=== PATIENT | male | born 1970 | race Caucasian/White ===

== ENCOUNTER 2025-05-29 01:40 | Inpatient (IN) | payer MEDICARE, SELFPAY ==
[2025-05-29] VITALS (12 sets, daily range): BP systolic 87–144; BP diastolic 51–84; PULSE 76–93; RESP 16–20; TEMP 35.3–36.9; O2SAT 95–100; BMI 22.0
--- NOTE | ~2025-05-29 | XR_ITS ---
CLINICAL HISTORY: sepsis 1 view chest x-ray Comparison: None provided Findings: There is mild nonspecific coarsening of bilateral interstitial markings. Heart size is normal. No acute fracture. IMPRESSION: Mild nonspecific coarsening of bilateral interstitial markings. This document has been electronically signed by: Levi Lang on 05/29/2025 05:10:33
--- NOTE | 2025-05-29 01:45 | MHC.EDTECH ---
Pt refused vitals, RN aware
--- NOTE | 2025-05-29 01:54 | PC.NURSE ---
pt refusing to allow nurse or tech to obtain v/s. fighting trying to stand up to go to restroom. attempted to explain to patient it is unsafe in his socks. pt began swearing and jerking away from nurses. security called for assistance
[2025-05-29 02:45] LABS: MANUAL DIFF FLAG NO
[2025-05-29] MEDS: Lactated Ringers 1,000 ML 999 ML IV ×3 (02:45→04:51)
[2025-05-29 02:47] LABS: Hematocrit 46.1 % (42.0-52.0); Hemoglobin 15.3 g/dl (14.0-18.0); Imm Gran Abs Auto 0.02 X10*3/uL (0.00-0.03); Imm Gran Pct Auto 0.3 % (0.0-0.4); Lymphocytes Absolute Auto 2.0 X10*3/uL (1.2-4.9); Mean Corpuscular HGB Conc 33.2 g/dl (31.0-36.0); Mean Corpuscular Hemoglobin 30.1 pg (27.0-33.0); Mean Corpuscular Volume 90.6 fL (80.0-98.0); NRBC Abs Auto 0.000 X10*3/uL (0.0-0.012); NRBC Pct Auto 0.0 /100WBC (0.0-0.2); Platelet Count 306 X10*3/uL (160-400); Red Blood Count 5.09 X10*6/uL (4.60-5.80); White Blood Count 5.8 X10*3/uL (4.8-10.8)
[2025-05-29 03:01] LABS: Alanine Aminotransferase 19 U/L (0-40); Albumin Level 4.3 g/dL (3.5-5.0); Alkaline Phosphatase 96 U/L (39-117); Anion Gap 16 (12-20); Aspartate Amino Transferase 39 U/L (5-37); Blood Urea Nitrogen 9 mg/dL (9-16); Calcium 8.8 mg/dL (8.4-10.2); Carbon Dioxide 23 mmol/L (22-29); Chloride 109 mmol/L (96-108); Creatinine Clr Calc Pharmacy 108.6; Estimated Glomerular Filt Rate > 60; Potassium 3.9 mmol/L (3.3-5.1); Sodium 144 mmol/L (135-145); Total Protein 7.4 g/dL (6.5-8.0)
--- NOTE | 2025-05-29 03:07 | ECG_ITS ---
Test Reason : HYPOTENSION Blood Pressure : */* mmHG Vent. Rate : 82 BPM Atrial Rate : 82 BPM P-R Int : 152 ms QRS Dur : 86 ms QT Int : 390 ms P-R-T Axes : 74 268 63 degrees QTcB Int : 455 ms Normal sinus rhythm Right superior axis deviation Pulmonary disease pattern Inferior-posterior infarct , age undetermined Abnormal ECG When compared with ECG of 23-Jul-2005 16:21, Questionable change in QRS axis Inferior-posterior infarct is now Present Nonspecific T wave abnormality now evident in Inferior leads Referred By: Summer De Electronically Signed By: Nam Parkinson
[2025-05-29 03:18] LABS: Venous Blood Gas Refer to POC result
[2025-05-29 03:20] LABS: VBG HCO3 23 mmol/L (22-26); VBG O2 % Saturation 65.0 %
[2025-05-29 04:01] LABS: Cannabinoid Screen Urine POSITIVE (Not Detect)
[2025-05-29 04:06] LABS: Appearance Urine Clear; Glucose Urine UA Negative (Negative); PH 6.0 (5.0-9.0); Specific Gravity - Urine <= 1.005 (1.005-1.025)
[2025-05-29] MEDS: vancomycin HCL 1,000 MG, vancomycin HCL 750 MG in 0.9 % Sodium Chloride 500 ML 267.5 MG IV (04:29)
[2025-05-29 04:43] LABS: Resp Syncy Virus RNA Qual PCR NEGATIVE (Negative); SARS COV2 PCR INHOUSE NEGATIVE (Negative)
[2025-05-29 05:11] LABS: Reflex Lactate? Lactic Acid Added
--- NOTE | 2025-05-29 05:39 | ED.ALCOHOL ---
HPI - Alcohol General Chief Complaint: ETOH/Substance Use Stated Complaint: crisis Time Seen by Provider: 05/29/25 01:56 Source: patient, EMS and RN notes reviewed Mode of arrival: EMS Limitations: altered mental status History of Present Illness ED Provider: Dr. Summer De HPI narrative: 55-year-old male with unclear past medical history presenting via EMS after the police were called by the patient. Evidently the patient called the police because he was ?cold?. EMS arrived to find the patient is severely intoxicated. Patient comes to the emergency department belligerent, refusing to answer any questions and stating ?you will not let me pee?. He is obviously intoxicated, belligerent, becoming violent towards staff, requiring chemical and physical restraints upon arrival to the ER. Related Data Home Medications ?Medication ?Instructions ?Recorded ?Confirmed omeprazole 20 mg capsule,delayed 20 mg PO DAILY 05/29/25 release pregabalin 300 mg capsule 300 mg PO BID 05/29/25 Allergies Allergy/AdvReac Type Severity Reaction Status Date / Time Unable to Assess Allergy Verified 05/29/25 01:56 Review of Systems Review of Systems: Yes Unobtainable due to mental status PMFSH Past Medical History Medical History Homelessness ETOH abuse Social History Social History Alcohol intake: current Use of substances other than those prescribed or required for medical reasons: Unknown Advance Directives: No Advance Directives Information Provided: Yes Do you have a plan to hurt others: No Plan Physical Exam ED Exam Exam: GENERAL: Appears intoxicated, GCS 13, eyes open to voice, slurred speech, belligerent, aggressive SKIN: Normal skin color for ethnicity, warm, dry, no rashes noted. HEENT: Normocephalic, atraumatic, no stridor, posterior oropharynx nonerythematous, dentition intact, EOMI, pupils are pinpoint bilaterally, reactive to light. NECK: Soft, supple, no step-offs, no deformities, no lymphadenopathy. CHEST: Heart regular tachycardia, no murmurs, symmetric chest rise and fall. PULMONARY: Clear to auscultation bilaterally, diminished at the bases, no labored breathing, no wheezes/rhales/rhonchi. ABDOMINAL: Soft, nondistended, positive bowel sounds in all quadrants. : Deferred. MUSCULOSKELETAL: Normal tone, full range of motion, right lower extremity is slightly deformed with significant edema, neurovascularly intact distally, chronic venous stasis changes with obvious surgical changes with the leg, negative Homans sign. NEURO: GCS 13, eyes open to voice, slightly slurred speech, CN II through XII intact, equal strength and sensation bilateral upper and lower extremities, no focal neurologic deficits. PSYCHIATRIC: Belligerent, aggressive, combative. Vital Signs: Vital Signs - 24 hr 05/29/25 01:41 05/29/25 02:23 05/29/25 02:28 Temperature Pulse Rate 86 84 Respiratory Rate 16 Blood Pressure 110/63 109/62 Pulse Oximetry 97 98 Oxygen Delivery Method Room Air Room Air 05/29/25 02:45 05/29/25 03:16 05/29/25 03:49 Temperature 96.3 F L 95.5 F L Pulse Rate 81 76 76 Respiratory Rate 18 18 17 Blood Pressure 87/54 L 97/55 L 100/55 L Pulse Oximetry 96 98 100 Oxygen Delivery Method Room Air Room Air 05/29/25 05:19 05/29/25 05:30 Temperature Pulse Rate 84 Respiratory Rate 16 Blood Pressure 97/51 L 110/62 Pulse Oximetry 95 Oxygen Delivery Method Room Air BMI result Body Mass Index 22.0 Medical Decision Making Medical Decision Making MDM Narrative: Patient presents today with a chief complaint of altered mental status. Differential diagnosis for AMS is incredibly broad and includes infection, intracranial process such as hemorrhage, stroke or mass, electrolyte abnormality, hypercarbia, hypoxia, toxic encephalopathy, among many others. Broad-based workup was initiated to further evaluate the etiology of patient's symptoms based on the above exam and history. Upon arrival to the emergency department, patient requiring chemical and physical restraints. He is combative, belligerent, aggressive towards staff. Received IM Haldol, Benadryl, Versed. Patient ultimately calmed down slightly, able to obtain lab work and vital signs. He is hypothermic, tachycardic and slightly hypotensive. Initiated IV fluids and warm blankets. Added on blood work including lactic acid level. 3:58 AM 05/29/2025 (Dr. Summer De, D.O.) Lactic acid initially 3.5, flagging patient for sepsis. He already received a 30 cc/kg fluid bolus. Added on a third L of fluid due to persistent hypotension. Patient is mentating more appropriately and I suspect some of his hypotension is secondary to medication administration in the setting of alcohol intoxication. Covered with broad-spectrum antibiotics including vancomycin and Zosyn. Suspect aspiration pneumonia in the setting of housing insecurity and alcohol use disorder. Blood pressure improved after the 3 L of fluid. Patient is able to sit up at the edge of the bed and urinate in the urinal without spilling his urine. This is a significant improvement. Patient will be admitted to hospitalist for further care and evaluation. Differential Diagnosis Differential Diagnoses: The differential diagnosis associated with the presentation includes (as above) Admission/Observation Consideration of admission/observation: Escalation of care including admission/observation considered Consult Healthcare Provider Management of the patient was discussed with: Hospitalist Lab Data MDM Lab Attestation statement: I reviewed the patient's lab results. 05/29/25 02:43 05/29/25 02:43 Labs: Lab Results 05/29/25 05/29/25 05/29/25 Range/Units 02:43 03:06 03:13 WBC 5.8 (4.8-10.8) X10*3/uL RBC 5.09 (4.60-5.80) X10*6/uL Hgb 15.3 (14.0-18.0) g/dl Hct 46.1 (42.0-52.0) % MCV 90.6 (80.0-98.0) fL MCH 30.1 (27.0-33.0) pg MCHC 33.2 (31.0-36.0) g/dl RDW 13.4 (11.0-16.0) % Plt Count 306 (160-400) X10*3/uL MPV 8.5 L (9.4-12.4) fL Immature Gran % (Auto) 0.3 (0.0-0.4) % Neut % (Auto) 53.1 (45-73) % Lymph % (Auto) 33.7 (20-40) % [place] % (Auto) 7.6 (2-11) % Eos % (Auto) 3.6 (0-4) % Baso % (Auto) 1.7 (0-2) % Lymph # (Auto) 2.0 (1.2-4.9) X10*3/uL [place] # (Auto) 0.4 (0.1-1.2) X10*3/uL Eos # (Auto) 0.2 (0.0-0.4) X10*3/uL Baso # (Auto) 0.1 (0.0-0.2) X10*3/uL Abs Immat Gran (auto) 0.02 (0.00-0.03) X10*3/uL Absolute Neuts (auto) 3.1 (2.0-8.3) x10*3/uL Absolute Nucleated RBC 0.000 (0.0-0.012) X10*3/uL Nucleated RBC % (auto) 0.0 (0.0-0.2) /100WBC VBG pH 7.32 (7.32-7.43) VBG pCO2 44 mmHg VBG pO2 45 mmHg VBG HCO3 23 (22-26) mmol/L VBG O2 Saturation 65.0 % VBG Base Excess -2.6 mmol/L Sodium 144 (135-145) mmol/L Potassium 3.9 (3.3-5.1) mmol/L Chloride 109 H (96-108) mmol/L Carbon Dioxide 23 (22-29) mmol/L Anion Gap 16 (12-20) BUN 9 (9-16) mg/dL Creatinine 0.78 (0.5-1.4) mg/dL Estim Creat Clear Calc 108.6 Estimated GFR > 60 Random Glucose 88 (60-115) mg/dL Lactic Acid 3.5 H* (0.5-2.0) mmol/L Lactic Acid F/U @ 2Hr (0.5-2.0) mmol/L Calcium 8.8 (8.4-10.2) mg/dL Total Bilirubin 0.3 (0.0-1.0) mg/dL AST 39 H (5-37) U/L ALT 19 (0-40) U/L Alkaline Phosphatase 96 (39-117) U/L Total Protein 7.4 (6.5-8.0) g/dL Albumin 4.3 (3.5-5.0) g/dL Urine Color Urine Appearance Urine pH (5.0-9.0) Ur Specific [place] (1.005-1.025) Urine Protein (Neg-Trace) mg/dL Urine Glucose (UA) (Negative) mg/dL Urine Ketones (Negative) mg/dL Urine Blood (Negative) Urine Nitrite (Negative) Ur Leukocyte Esterase (Negative) Urine Opiates Screen (Not Detect) Ur Buprenorphine Scrn (Not Detect) ng/mL Ur Oxycodone Screen (Not Detect) ng/mL Urine Methadone Screen (Not Detect) ng/mL Urine Fentanyl Screen (Not Detect) Ur Barbiturates Screen (Not Detect) Ur Phencyclidine Scrn (Not Detect) Ur Amphetamines Screen (Not Detect) U Benzodiazepines Scrn (Not Detect) Urine Cocaine Screen (Not Detect) U Marijuana (THC) Screen (Not Detect) Ethyl Alcohol 312 H* mg/dL Influenza Type A (PCR) (Negative) Influenza Type B (PCR) (Negative) RSV RNA Qual (PCR) (Negative) SARS-CoV-2 RNA (RT-PCR) (Negative) 05/29/25 05/29/25 05/29/25 Range/Units 03:38 03:58 05:28 WBC (4.8-10.8) X10*3/uL RBC (4.60-5.80) X10*6/uL Hgb (14.0-18.0) g/dl Hct (42.0-52.0) % MCV (80.0-98.0) fL MCH (27.0-33.0) pg MCHC (31.0-36.0) g/dl RDW (11.0-16.0) % Plt Count (160-400) X10*3/uL MPV (9.4-12.4) fL Immature Gran % (Auto) (0.0-0.4) % Neut % (Auto) (45-73) % Lymph % (Auto) (20-40) % [place] % (Auto) (2-11) % Eos % (Auto) (0-4) % Baso % (Auto) (0-2) % Lymph # (Auto) (1.2-4.9) X10*3/uL [place] # (Auto) (0.1-1.2) X10*3/uL Eos # (Auto) (0.0-0.4) X10*3/uL Baso # (Auto) (0.0-0.2) X10*3/uL Abs Immat Gran (auto) (0.00-0.03) X10*3/uL Absolute Neuts (auto) (2.0-8.3) x10*3/uL Absolute Nucleated RBC (0.0-0.012) X10*3/uL Nucleated RBC % (auto) (0.0-0.2) /100WBC VBG pH (7.32-7.43) VBG pCO2 mmHg VBG pO2 mmHg VBG HCO3 (22-26) mmol/L VBG O2 Saturation % VBG Base Excess mmol/L Sodium (135-145) mmol/L Potassium (3.3-5.1) mmol/L Chloride (96-108) mmol/L Carbon Dioxide (22-29) mmol/L Anion Gap (12-20) BUN (9-16) mg/dL Creatinine (0.5-1.4) mg/dL Estim Creat Clear Calc Estimated GFR Random Glucose (60-115) mg/dL Lactic Acid (0.5-2.0) mmol/L Lactic Acid F/U @ 2Hr 2.4 H* (0.5-2.0) mmol/L Calcium (8.4-10.2) mg/dL Total Bilirubin (0.0-1.0) mg/dL AST (5-37) U/L ALT (0-40) U/L Alkaline Phosphatase (39-117) U/L Total Protein (6.5-8.0) g/dL Albumin (3.5-5.0) g/dL Urine Color Yellow Urine Appearance Clear Urine pH 6.0 (5.0-9.0) Ur Specific [place] <= 1.005 (1.005-1.025) Urine Protein Negative (Neg-Trace) mg/dL Urine Glucose (UA) Negative (Negative) mg/dL Urine Ketones Negative (Negative) mg/dL Urine Blood Negative (Negative) Urine Nitrite Negative (Negative) Ur Leukocyte Esterase Negative (Negative) Urine Opiates Screen Not Detected (Not Detect) Ur Buprenorphine Scrn Not Detected (Not Detect) ng/mL Ur Oxycodone Screen Not Detected (Not Detect) ng/mL Urine Methadone Screen Not Detected (Not Detect) ng/mL Urine Fentanyl Screen Not Detected (Not Detect) Ur Barbiturates Screen Not Detected (Not Detect) Ur Phencyclidine Scrn Not Detected (Not Detect) Ur Amphetamines Screen Not Detected (Not Detect) U Benzodiazepines Scrn POSITIVE H (Not Detect) Urine Cocaine Screen Not Detected (Not Detect) U Marijuana (THC) Screen POSITIVE H (Not Detect) Ethyl Alcohol mg/dL Influenza Type A (PCR) NEGATIVE (Negative) Influenza Type B (PCR) NEGATIVE (Negative) RSV RNA Qual (PCR) NEGATIVE (Negative) SARS-CoV-2 RNA (RT-PCR) NEGATIVE (Negative) Radiology Impression Radiologist Impression: 1 view chest x-ray Comparison: None provided Findings: There is mild nonspecific coarsening of bilateral interstitial markings. Heart size is normal. No acute fracture. IMPRESSION: Mild nonspecific coarsening of bilateral interstitial markings. This document has been electronically signed by: Levi Lang on 05/29/2025 05:10:33 Independent Historian Clinical information obtained from an independent historian. History obtained from or confirmed by: EMS Chronic Conditions Patient?s care impacted by: Other (Alcohol use disorder) Social Determinants Patient?s care significantly limited by Social Determinants of Health including: Inadequate housing and Other Social Determinant of Health Medications Administered Generic Name Dose Route Start Last Admin Trade Name Freq PRN Reason Stop Dose Admin Enoxaparin Sodium 40 mg 05/29/25 07:00 05/29/25 08:04 Enoxaparin Sodium 40 Mg/0.4 Ml Syringe SUBCUT 40 mg Q24H CONNIE Administration Folic Acid 1 mg 05/29/25 09:00 05/29/25 08:04 Folic Acid 1 Mg Tablet PO 06/01/25 08:59 1 mg DAILY CONNIE Administration Lactated Ringer's 1,000 mls @ 80 mls/hr 05/29/25 06:45 05/29/25 08:08 Lr IVCONT 80 mls/hr .[id number] CONNIE Administration Multivitamins/Vitamin C 1 tab 05/29/25 09:00 05/29/25 08:04 Multivitamin Tablet PO 06/01/25 08:59 1 tab DAILY CONNIE Administration Sodium Chloride 3 ml 05/29/25 08:00 05/29/25 08:08 0.9 % Sodium Chloride Flush 3 Ml Syringe IVFLUSH 3 ml QSHIFT CONNIE Administration Thiamine HCl 100 mg 05/29/25 09:00 05/29/25 08:04 Thiamine Hcl 100 Mg Tablet PO 06/01/25 08:59 100 mg DAILY CONNIE Administration Discontinued Medications Generic Name Dose Route Start Last Admin Trade Name Freq PRN Reason Stop Dose Admin Diphenhydramine HCl 50 mg 05/29/25 01:56 05/29/25 02:00 Diphenhydramine Hcl 50 Mg/Ml Vial IM 05/29/25 01:57 50 mg ONCE ONE Administration Haloperidol Lactate 5 mg 05/29/25 01:56 05/29/25 02:00 Haloperidol Lactate 5 Mg/Ml Vial IM 05/29/25 01:57 5 mg STAT STA Administration Lactated Ringer's 1,000 mls @ 999 mls/hr 05/29/25 02:41 05/29/25 03:33 Lr IV 05/29/25 03:41 Infused .Q1H1M ONE Infusion Lactated Ringer's 1,000 mls @ 999 mls/hr 05/29/25 03:06 05/29/25 03:36 Lr IV 05/29/25 04:06 Infused .Q1H1M ONE Infusion Vancomycin HCl 1,000 mg/ 535 mls @ 267.5 mls/hr 05/29/25 03:44 05/29/25 07:02 Vancomycin HCl 750 mg/ Sodium IV 05/29/25 05:43 Infused Chloride ONCE ONE Infusion Piperacillin Sod/Tazobactam 100 mls @ 200 mls/hr 05/29/25 03:44 05/29/25 04:50 Sod 4.5 gm/ Sodium Chloride IV 05/29/25 04:13 Infused ONCE ONE Infusion Lactated Ringer's 1,000 mls @ 999 mls/hr 05/29/25 04:41 05/29/25 05:31 Lr IV 05/29/25 05:41 Infused .Q1H1M ONE Infusion Midazolam HCl 5 mg 05/29/25 01:56 05/29/25 02:00 Midazolam Hcl 5 Mg/Ml Vial IM 05/29/25 01:57 5 mg ONCE ONE Administration Critical Care Time Critical Care Time Critical Care Time: Yes Total Critical Care Time: 55 Attestation: CRITICAL CARE TIME: 55 minutes of critical care time was spent in direct patient care at the bedside or in the immediate area with this patient. Critical care was necessary to treat or prevent imminent or life-threatening deterioration of the following conditions severe sepsis, acute psychosis, belligerence, alcohol intoxication requiring chemical and physical restraints, fluid resuscitation due to likely aspiration pneumonia, alcohol use disorder. This patient is high risk for decompensation and/or . This time was spent assessing and managing the patient, interpreting labs and imaging, coordinating care with other medical providers, gathering history from either the patient, their representatives, EMS or chart review, and discussing management with admitting team. Discharge Plan Discharge Clinical Impression: Severe sepsis, Acute alcohol intoxication, Toxic encephalopathy Patient Disposition: Admitted As Inpatient
[2025-05-29 05:48] LABS: ~Lactic Acid-LAB USE ONLY 2.4 mmol/L (0.5-2.0)
--- NOTE | 2025-05-29 06:02 | PC.NURSE ---
stood up beside bed and used urinal at this time. pt was calm and pleasant at this time. 600 cc output
--- NOTE | 2025-05-29 06:51 | PM.IMHP ---
History of Present Illness Date of Service: 05/29/25 Attending physician on admission: Timoteo Moody Chief Complaint: Cold pt is a 55 yo male with a pmhx significant for homelessness and etoh abuse who presented to the ED after calling the police asking to be picked up because he is cold. police sent EMS and pt reported that he was asx and refused all vitals. when he arrived to the ED he refused vitals here as well initially. he was severely agitated and sedated and has been somnolent since. in the ED he was hypotensive and hypothermic, responsive to IVF. he was started on vancomycin and zosyn due to concern for aspiration pneumonia. etoh level 312. Review of Systems Review of Systems: Yes Unobtainable due to mental condition and Unobtainable due to mental status PMFSH Medical History Homelessness ETOH abuse Functional capacity: independent ambulation Social History Advance Directives: No Advance Directives Information Provided: Yes Do you have a plan to hurt others: No Plan Meds Allergies Allergy/AdvReac Type Severity Reaction Status Date / Time Unable to Assess Allergy Verified 05/29/25 01:56 Active Medications: Current Medications Acetaminophen (Acetaminophen 325 Mg Tablet) 975 mg PO Q6H PRN PRN Reason: Pain, Mild 1-3,fever,headache Calcium Carbonate (Calcium Carbonate 750 Mg Tab.Chew) 750 mg PO Q4H PRN PRN Reason: Heartburn Enoxaparin Sodium (Enoxaparin Sodium 40 Mg/0.4 Ml Syringe) 40 mg SUBCUT Q24H CONNIE Lactated Ringer's (Lr) 1,000 mls @ 80 mls/hr IVCONT .[id number] CONNIE Magnesium Hydroxide (Milk Of Magnesia 30 Ml Oral.Susp) 30 ml PO DAILY PRN PRN Reason: Constipation Melatonin (Melatonin 3 Mg Tablet) 6 mg PO BEDTIME PRN PRN Reason: Insomnia Ondansetron HCl (Ondansetron Hcl 4 Mg/2 Ml Vial) 4 mg IVPUSH Q8H PRN PRN Reason: Nausea and Vomiting Oxycodone HCl (Oxycodone Hcl Immed Release 5 Mg Tablet) 5 mg PO Q6H PRN PRN Reason: Pain, Severe (Pain Scale 7-10) Sodium Chloride (0.9 % Sodium Chloride Flush 3 Ml Syringe) 3 ml IVFLUSH QSHIFT CONNIE Tramadol HCl (Tramadol Hcl 50 Mg Tablet) 50 mg PO Q6H PRN PRN Reason: Pain, Moderate(Pain Scale 4-6) Physical Exam Vital Signs and Narrative: Vital Signs: Last Vital Signs Temp 95.5 F L 05/29/25 03:49 Pulse 84 05/29/25 05:19 Resp 16 05/29/25 05:19 BP 110/62 05/29/25 05:30 Pulse Ox 95 05/29/25 05:19 O2 Del Method Room Air 05/29/25 05:19 BMI result Body Mass Index 22.0 General: somnolent, no acute distress Resp: CTA bilaterally CVS: S1, S2, RRR GI: +BS, NT, no distention Skin: Warm, dry Neuro: Motor grossly intact bilaterally Extremities: No pitting edema Psych: somnolent, was severely agitated Results Labs 05/29/25 02:43 05/29/25 02:43 Labs: Laboratory Results - last 24 hr 05/29/25 05/29/25 05/29/25 02:43 03:06 03:13 MCV 90.6 MCH 30.1 MCHC 33.2 RDW 13.4 Plt Count 306 MPV 8.5 L Immature Gran % (Auto) 0.3 Neut % (Auto) 53.1 Lymph % (Auto) 33.7 [place] % (Auto) 7.6 Eos % (Auto) 3.6 Baso % (Auto) 1.7 Lymph # (Auto) 2.0 [place] # (Auto) 0.4 Eos # (Auto) 0.2 Baso # (Auto) 0.1 Abs Immat Gran (auto) 0.02 Absolute Neuts (auto) 3.1 Absolute Nucleated RBC 0.000 Nucleated RBC % (auto) 0.0 VBG pH 7.32 VBG pCO2 44 VBG pO2 45 VBG HCO3 23 VBG O2 Saturation 65.0 VBG Base Excess -2.6 Anion Gap 16 Estim Creat Clear Calc 108.6 Estimated GFR > 60 Random Glucose 88 Lactic Acid 3.5 H* Lactic Acid F/U @ 2Hr Calcium 8.8 Total Bilirubin 0.3 AST 39 H ALT 19 Alkaline Phosphatase 96 Total Protein 7.4 Albumin 4.3 Urine Color Urine Appearance Urine pH Ur Specific [place] Urine Protein Urine Glucose (UA) Urine Ketones Urine Blood Urine Nitrite Ur Leukocyte Esterase Urine Opiates Screen Ur Buprenorphine Scrn Ur Oxycodone Screen Urine Methadone Screen Urine Fentanyl Screen Ur Barbiturates Screen Ur Phencyclidine Scrn Ur Amphetamines Screen U Benzodiazepines Scrn Urine Cocaine Screen U Marijuana (THC) Screen Ethyl Alcohol 312 H* Influenza Type A (PCR) Influenza Type B (PCR) RSV RNA Qual (PCR) SARS-CoV-2 RNA (RT-PCR) 05/29/25 05/29/25 05/29/25 03:38 03:58 05:28 MCV MCH MCHC RDW Plt Count MPV Immature Gran % (Auto) Neut % (Auto) Lymph % (Auto) [place] % (Auto) Eos % (Auto) Baso % (Auto) Lymph # (Auto) [place] # (Auto) Eos # (Auto) Baso # (Auto) Abs Immat Gran (auto) Absolute Neuts (auto) Absolute Nucleated RBC Nucleated RBC % (auto) VBG pH VBG pCO2 VBG pO2 VBG HCO3 VBG O2 Saturation VBG Base Excess Anion Gap Estim Creat Clear Calc Estimated GFR Random Glucose Lactic Acid Lactic Acid F/U @ 2Hr 2.4 H* Calcium Total Bilirubin AST ALT Alkaline Phosphatase Total Protein Albumin Urine Color Yellow Urine Appearance Clear Urine pH 6.0 Ur Specific [place] <= 1.005 Urine Protein Negative Urine Glucose (UA) Negative Urine Ketones Negative Urine Blood Negative Urine Nitrite Negative Ur Leukocyte Esterase Negative Urine Opiates Screen Not Detected Ur Buprenorphine Scrn Not Detected Ur Oxycodone Screen Not Detected Urine Methadone Screen Not Detected Urine Fentanyl Screen Not Detected Ur Barbiturates Screen Not Detected Ur Phencyclidine Scrn Not Detected Ur Amphetamines Screen Not Detected U Benzodiazepines Scrn POSITIVE H Urine Cocaine Screen Not Detected U Marijuana (THC) Screen POSITIVE H Ethyl Alcohol Influenza Type A (PCR) NEGATIVE Influenza Type B (PCR) NEGATIVE RSV RNA Qual (PCR) NEGATIVE SARS-CoV-2 RNA (RT-PCR) NEGATIVE Assessment and Plan (1) Toxic encephalopathy: Status: Acute (2) Acute alcohol intoxication: Status: Acute (3) Acute lactic acidosis: Status: Acute (4) Hypothermia: Status: Acute Plan pt is a 55 yo male with a pmhx significant for homelessness and etoh abuse who presented to the ED after calling the police asking to be picked up because he is cold. etoh level 312 toxic encephalopathy due to alcohol intoxication - not currently in withdrawal, monitor WA - addiction med consult - B12, folate, multivitamin acute lactic acidosis, likely secondary to dehydration and etoh use - LR 80/hr hypothermia - likely from being outdoors, intoxicated - repeat chest xray after hydration - hold on further abx until CXR repeated hypotension, improving - IVF presumed full code VTE prophy: heparin Pt iwth acute toxic encephalopathy secondary to alcohol intoxication complicated by acute lactic acidosis and hypothermia likely due to alcohol intoxication, requiring admission for at least 2 midnight stay for further evaluation and monitoring. Quality Stroke Does the patient have a stroke diagnosis?: No VTE Prior VTE?: No VTE Risk Level:: Medical - moderate - high VTE Device Contraindication: Treatment Not Indicated VTE Drug Contraindication: N/A - Med Ordered
[2025-05-29 07:30] LABS: Reflex Lactate? 2 Y
[2025-05-29] MEDS: Lactated Ringers 1,000 ML 80 ML IVCONT (08:08)
[2025-05-29] MEDS: 0.9 % Sodium Chloride Flush 3 ML SYRINGE IVFLUSH (08:08)
[2025-05-29 08:15] LABS: ~Lactic Acid-LAB USE ONLY 2.0 mmol/L (0.5-2.0)
--- NOTE | 2025-05-29 08:15 | PC.NURSE ---
Patient awoke to verbal stimuli. Does not recall events leading to him being in the hospital. States he is a daily drinker. However, denies any previous withdrawal/withdrawal seizures. Attempted rectal temperature, patient refused. Oral temp obtained, showed normal temperature. IV fluids infusing. Call martinez within reach.
--- NOTE | 2025-05-29 08:53 | PHA.MEDREC ---
Addendum entered by Venus Perez jarek 05/29/25 08:56: reviewed Original Note: Pharmacy Consult ? Medication Reconciliation Pharmacy has completed the medication reconciliation. Spoke with pt and he confirmed he is only taking Aleve as needed and nothing else at this time.
--- NOTE | 2025-05-29 11:16 | MHC.RECOVRN ---
Met with pt in? ED-17 after receiving consult to Addiction Medicine for alcohol use. Pt was admitted with acute toxic encephalopathy secondary to alcohol intoxication complicated by acute lactic acidosis and hypothermia. Upon approach pt was laying in bed, eyes closed, in no apparent distress. Respirations even and unlabored. No restlessness or diaphoresis noted.? Intention was to discuss alcohol use and recovery/support options. When inquired about alcohol intake pt reports, ?Its alot?. When probed further, pt states ?too much?. He was unwilling to discuss further and responded, ?I?d rather not answer these questions, thank you?.? Pt declines intervention, MARISSA, or appt for tx related to AUD at this time TW is available as needed and left contact information and recovery education and resources at bedside should pt reconsider.
--- NOTE | 2025-05-29 12:26 | PC.NURSE ---
Patient ambulated to bathroom with steady gait. Patient resting quietly in bed at this time. Call martinez placed within reach.
--- NOTE | 2025-05-29 12:34 | PC.NURSE ---
Patient belongings returned to patient at this time. Patient denies SI/HI.
--- NOTE | 2025-05-29 14:56 | P.PNIM_ITS ---
Subjective Subjective Date of Service: 05/29/25 Interval History: Pt seen in ed, he denies any sx, states he wants to eat something, Review of Systems -ve except as stated above Physical Exam 2 Exam: Exam: A&Ox 3 abdomen soft non tender heart RRR resp : on RA moving all extremities Vital Signs: Vital Signs: Last Vital Signs Temp 98.2 F 05/29/25 12:32 Pulse 89 05/29/25 12:32 Resp 18 05/29/25 12:32 BP 144/83 H 05/29/25 12:32 Pulse Ox 98 05/29/25 12:32 O2 Del Method Room Air 05/29/25 12:32 BMI result Body Mass Index 22.0 Objective Data Active Medications Acetaminophen (Acetaminophen 325 Mg Tablet) 975 mg PO Q6H PRN PRN Reason: Pain, Mild 1-3,fever,headache Calcium Carbonate (Calcium Carbonate 750 Mg Tab.Chew) 750 mg PO Q4H PRN PRN Reason: Heartburn Enoxaparin Sodium (Enoxaparin Sodium 40 Mg/0.4 Ml Syringe) 40 mg SUBCUT Q24H [facility] Last Admin: 05/29/25 08:04 Dose: 40 mg Documented By: JABIER Folic Acid (Folic Acid 1 Mg Tablet) 1 mg PO DAILY [facility] Stop: 06/01/25 08:59 Last Admin: 05/29/25 08:04 Dose: 1 mg Documented By: JABIER Lactated Ringer's (Lr) 1,000 mls @ 80 mls/hr IVCONT .[id number] [facility] Last Admin: 05/29/25 08:08 Dose: 80 mls/hr Documented By: JABIER Magnesium Hydroxide (Milk Of Magnesia 30 Ml Oral.Susp) 30 ml PO DAILY PRN PRN Reason: Constipation Melatonin (Melatonin 3 Mg Tablet) 6 mg PO BEDTIME PRN PRN Reason: Insomnia Multivitamins/Vitamin C (Multivitamin Tablet) 1 tab PO DAILY [facility] Stop: 06/01/25 08:59 Last Admin: 05/29/25 08:04 Dose: 1 tab Documented By: JABIER Ondansetron HCl (Ondansetron Hcl 4 Mg/2 Ml Vial) 4 mg IVPUSH Q8H PRN PRN Reason: Nausea and Vomiting Oxycodone HCl (Oxycodone Hcl Immed Release 5 Mg Tablet) 5 mg PO Q6H PRN PRN Reason: Pain, Severe (Pain Scale 7-10) Sodium Chloride (0.9 % Sodium Chloride Flush 3 Ml Syringe) 3 ml IVFLUSH QSHIFT CONNIE Last Admin: 05/29/25 08:08 Dose: 3 ml Documented By: JABIER Thiamine HCl (Thiamine Hcl 100 Mg Tablet) 100 mg PO DAILY [facility] Stop: 06/01/25 08:59 Last Admin: 05/29/25 08:04 Dose: 100 mg Documented By: JABIER Tramadol HCl (Tramadol Hcl 50 Mg Tablet) 50 mg PO Q6H PRN PRN Reason: Pain, Moderate(Pain Scale 4-6) Labs 05/29/25 02:43 05/29/25 02:43 Labs: Laboratory Results - last 24 hr 05/29/25 05/29/25 05/29/25 02:43 03:06 03:13 MCV 90.6 MCH 30.1 MCHC 33.2 RDW 13.4 Plt Count 306 MPV 8.5 L Immature Gran % (Auto) 0.3 Neut % (Auto) 53.1 Lymph % (Auto) 33.7 [place] % (Auto) 7.6 Eos % (Auto) 3.6 Baso % (Auto) 1.7 Lymph # (Auto) 2.0 [place] # (Auto) 0.4 Eos # (Auto) 0.2 Baso # (Auto) 0.1 Abs Immat Gran (auto) 0.02 Absolute Neuts (auto) 3.1 Absolute Nucleated RBC 0.000 Nucleated RBC % (auto) 0.0 VBG pH 7.32 VBG pCO2 44 VBG pO2 45 VBG HCO3 23 VBG O2 Saturation 65.0 VBG Base Excess -2.6 Anion Gap 16 Estim Creat Clear Calc 108.6 Estimated GFR > 60 Random Glucose 88 Lactic Acid 3.5 H* Lactic Acid F/U @ 2Hr Lactic Acid F/U @ 4Hr Calcium 8.8 Total Bilirubin 0.3 AST 39 H ALT 19 Alkaline Phosphatase 96 Total Protein 7.4 Albumin 4.3 Urine Color Urine Appearance Urine pH Ur Specific [place] Urine Protein Urine Glucose (UA) Urine Ketones Urine Blood Urine Nitrite Ur Leukocyte Esterase Urine Opiates Screen Ur Buprenorphine Scrn Ur Oxycodone Screen Urine Methadone Screen Urine Fentanyl Screen Ur Barbiturates Screen Ur Phencyclidine Scrn Ur Amphetamines Screen U Benzodiazepines Scrn Urine Cocaine Screen U Marijuana (THC) Screen Ethyl Alcohol 312 H* Influenza Type A (PCR) Influenza Type B (PCR) RSV RNA Qual (PCR) SARS-CoV-2 RNA (RT-PCR) 05/29/25 05/29/25 05/29/25 03:38 03:58 05:28 MCV MCH MCHC RDW Plt Count MPV Immature Gran % (Auto) Neut % (Auto) Lymph % (Auto) [place] % (Auto) Eos % (Auto) Baso % (Auto) Lymph # (Auto) [place] # (Auto) Eos # (Auto) Baso # (Auto) Abs Immat Gran (auto) Absolute Neuts (auto) Absolute Nucleated RBC Nucleated RBC % (auto) VBG pH VBG pCO2 VBG pO2 VBG HCO3 VBG O2 Saturation VBG Base Excess Anion Gap Estim Creat Clear Calc Estimated GFR Random Glucose Lactic Acid Lactic Acid F/U @ 2Hr 2.4 H* Lactic Acid F/U @ 4Hr Calcium Total Bilirubin AST ALT Alkaline Phosphatase Total Protein Albumin Urine Color Yellow Urine Appearance Clear Urine pH 6.0 Ur Specific [place] <= 1.005 Urine Protein Negative Urine Glucose (UA) Negative Urine Ketones Negative Urine Blood Negative Urine Nitrite Negative Ur Leukocyte Esterase Negative Urine Opiates Screen Not Detected Ur Buprenorphine Scrn Not Detected Ur Oxycodone Screen Not Detected Urine Methadone Screen Not Detected Urine Fentanyl Screen Not Detected Ur Barbiturates Screen Not Detected Ur Phencyclidine Scrn Not Detected Ur Amphetamines Screen Not Detected U Benzodiazepines Scrn POSITIVE H Urine Cocaine Screen Not Detected U Marijuana (THC) Screen POSITIVE H Ethyl Alcohol Influenza Type A (PCR) NEGATIVE Influenza Type B (PCR) NEGATIVE RSV RNA Qual (PCR) NEGATIVE SARS-CoV-2 RNA (RT-PCR) NEGATIVE 05/29/25 07:54 MCV MCH MCHC RDW Plt Count MPV Immature Gran % (Auto) Neut % (Auto) Lymph % (Auto) [place] % (Auto) Eos % (Auto) Baso % (Auto) Lymph # (Auto) [place] # (Auto) Eos # (Auto) Baso # (Auto) Abs Immat Gran (auto) Absolute Neuts (auto) Absolute Nucleated RBC Nucleated RBC % (auto) VBG pH VBG pCO2 VBG pO2 VBG HCO3 VBG O2 Saturation VBG Base Excess Anion Gap Estim Creat Clear Calc Estimated GFR Random Glucose Lactic Acid Lactic Acid F/U @ 2Hr Lactic Acid F/U @ 4Hr 2.0 Calcium Total Bilirubin AST ALT Alkaline Phosphatase Total Protein Albumin Urine Color Urine Appearance Urine pH Ur Specific [place] Urine Protein Urine Glucose (UA) Urine Ketones Urine Blood Urine Nitrite Ur Leukocyte Esterase Urine Opiates Screen Ur Buprenorphine Scrn Ur Oxycodone Screen Urine Methadone Screen Urine Fentanyl Screen Ur Barbiturates Screen Ur Phencyclidine Scrn Ur Amphetamines Screen U Benzodiazepines Scrn Urine Cocaine Screen U Marijuana (THC) Screen Ethyl Alcohol Influenza Type A (PCR) Influenza Type B (PCR) RSV RNA Qual (PCR) SARS-CoV-2 RNA (RT-PCR) Assessment and Plan (1) Acute alcohol intoxication: Status: Acute (2) ETOH abuse: Status: Acute (3) Acute lactic acidosis: Status: Acute (4) Toxic encephalopathy: Status: Acute (5) Homelessness: Status: Acute Plan pt is a 55 yo male with a pmhx significant for homelessness and etoh abuse who presented to the ED after calling the police asking to be picked up because he is cold. etoh level 312 toxic encephalopathy due to alcohol intoxication resolved - not currently in withdrawal, monitor CIWA - addiction med consult - B12, folate, multivitamin acute lactic acidosis, likely secondary to dehydration and etoh use - LR 80/hr resolved hypothermia resolved - likely from being outdoors, intoxicated - CXR -ve for pna, UA -ve, resp panel -ve, BC pending no leucocytosis received Abx in ed, no clear source of infection hold off on further abx hypotension, improving - IVF presumed full code VTE prophy: heparin sc Quality Stroke Does the patient have a stroke diagnosis?: No VTE Prior VTE?: No VTE Risk Level:: Medical - moderate - high VTE Device Contraindication: Treatment Not Indicated VTE Drug Contraindication: N/A - Med Ordered
--- NOTE | 2025-05-29 15:26 | PC.NURSE ---
Patient requesting to leave AMA. Provider notified. Patient alert and oriented x 4. Patient self ambulating with steady gait.
[2025-05-29 15:34] LABS: Lipase 89 U/L (8-78)
== END 2025-05-29 17:53 | disposition left against medical advice (07) | DRG 922 ==
LOC: HO.ED 02:32 → HO.EDOVER 06:11
PROVIDERS: Admitting Provider Physician Assistant; Emergency Provider Emergency Medicine; Visit Provider Hospitalist
DX: T68.XXXA Hypothermia, initial encounter (principal); G92.8 Other toxic encephalopathy; E87.21 Acute metabolic acidosis; Z59.02 Unsheltered homelessness; X31.XXXA Exposure to excessive natural cold, initial encounter; Y90.8 Blood alcohol level of 240 mg/100 ml or more; F10.129 Alcohol abuse with intoxication, unspecified; I95.9 Hypotension, unspecified; Z20.822 Contact with and (suspected) exposure to COVID-19
CPT/HCPCS: 36415; 71045; 80053; 80307; 81003; 82803; 83605; 83690; 85025; 87040; 87637; 93005; 99285; J1200; J1630; J1650; J2250; J2543; J3374; J7120

== ENCOUNTER → 2025-05-29 03:07 | Outpatient (BNV) | payer MEDICARE, SELFPAY | PROVIDERS: Admitting Provider Physician Assistant; Emergency Provider Emergency Medicine; Visit Provider Internal Medicine Cardiovascular Disease | DX: I95.9 Hypotension, unspecified (principal); J84.9 Interstitial pulmonary disease, unspecified | CPT/HCPCS: 93010 ==

== ENCOUNTER → 2025-05-29 03:44 | Outpatient (BNV) | payer MEDICARE, SELFPAY | PROVIDERS: Emergency Provider Emergency Medicine; Visit Provider Radiology Vascular & Interventional Radiology | DX: A41.9 Sepsis, unspecified organism (principal) | CPT/HCPCS: 71045 ==

== ENCOUNTER → 2025-05-29 06:07 | Outpatient (BNV) | payer MEDICARE, SELFPAY | PROVIDERS: Admitting Provider Physician Assistant; Emergency Provider Emergency Medicine; Visit Provider Hospitalist | DX: F10.929 Alcohol use, unspecified with intoxication, unspecified (principal); F10.10 Alcohol abuse, uncomplicated; E87.21 Acute metabolic acidosis; G92.9 Unspecified toxic encephalopathy; Z59.00 Homelessness unspecified; T68.XXXA Hypothermia, initial encounter | CPT/HCPCS: 99222; 99499 ==